=== PATIENT | female | born 1980 | race African-American/Black ===

== ENCOUNTER 2025-06-30 21:04 | Emergency (ER) | payer OTHER, BC ==
[~2025-06-30] VITALS: Ht 167.6 cm; Wt 69.0 kg
[2025-06-30 21:12] VITALS: O2SAT 99
[2025-07-01 00:07] LABS: BASOPHILS % 0.8 % (0.0-2.0); EOSINOPHILS % 1.2 % (0.0-5.0); HEMATOCRIT. 42.5 % (36.0-48.0); HEMOGLOBIN. 13.7 g/dL (12.0-16.0); LYMPHOCYTES % 35.5 % (20.0-50.0); MEAN PLATELET VOLUME 8.2 fl (7.4-10.4); MONOCYTES % 8.7 % (2.0-8.0); NEUTROPHILS % 53.8 % (40.0-76.0); PLATELET 225 x1000/uL (130-400); RED BLOOD CELL COUNT 4.71 mill/uL (4.2-5.4); RED CELL DISTRIBUTION WIDTH 14.1 % (11.6-14.6)
[2025-07-01 00:16] LABS: CREATININE 0.8 mg/dL (0.6-1.0); HCG SCREEN NEGATIVE; UREA NITROGEN BLOOD 6 mg/dL (9-23)
[2025-07-01 00:17] LABS: PROTEIN TOTAL 7.4 g/dL (6.0-8.3); TROPONIN I HIGH SENSITIVITY < 4 ng/L (3.0-34)
[2025-07-01 00:18] LABS: ASPARTATE AMINOTRANSFERASE 16 IU/L (<34); BILIRUBIN DIRECT 0.3 mg/dL (<=3.0)
[2025-07-01 00:19] LABS: BILIRUBIN TOTAL 1.1 mg/dL (0.1-1.0)
[2025-07-01] MEDS: POTASSIUM CHLORIDE 20MEQ/PACKET PO ONE (01:21)
[2025-07-01] MEDS: IOHEXOL-350 100 ML BOTTLE ONE (02:57)
[2025-07-01 03:19] VITALS: BP 116/77; PULSE 75; RESP 18; TEMP 36.6; O2SAT 96
== END 2025-07-01 03:19 | disposition home or self-care (01) ==
LOC: ER 21:04
DX: R06.02 Shortness of breath (principal); E87.6 Hypokalemia; Z77.098 Contact with and (suspected) exposure to other hazardous, chiefly nonmedicinal, chemicals; Z88.0 Allergy status to penicillin
CPT/HCPCS: 99285; 71045; 80076; 80048; 84703; 83880; 83690; 85025; 85379; 84484; 36415; 71275; 93005; Q9967